=== PATIENT | male | born 1955 | race Caucasian/White ===

== ENCOUNTER 2017-11-29 21:17 | Inpatient (IN) | payer OTHER ==
[~2017-11-29] VITALS: Ht 188 cm; Wt 108.6 kg
[~2017-11-29 21:17] MED LIST: AMLODIPINE-BEN1 EAC4 PO; Ascorbic Acid,Ester- PO; Keflex PO; LIDODERM 5% P1 PATCH TD; LOTREL 5/201 CAPSUL1 PO; Lotensin PO; Lovenox SC; OxyCONTIN PO; SENOKOT S,PE1 TABLET PO; STOOL SOFTENER100 MG PO; Super B Complex PO; Vitamin D PO; Xanax PO; oxyCODONE PO
[2017-11-29 22:22] LABS: BASE EXCESS -0.7 mEq/L (-3 to +3); BICARBONATE 23.4 mEq/L (22-26); CARBOXY HGB 3.5 % (0-5); COMMENTS - BLOOD GASES C+A+; DEVICE NC; METHEMOGLOBIN 0.9 % (0-1.5); O2 FLOW 3 L/MIN; PCO2 36 mm Hg (35-45); PO2 78 mm Hg (80-100); SITE LR; pH 7.42 (7.35-7.45)
[2017-11-29 22:23] LABS: CHLORIDE 93 mEq/L (99-109); POTASSIUM 3.5 mEq/L (3.7-5.4); SODIUM 131 mEq/L (136-147)
[2017-11-29 22:28] LABS: GFR ESTIMATE (CALCULATED) 36 mL/min/ (58.99-99999)
[2017-11-29 22:29] LABS: UREA NITROGEN (BUN) 22 mg/dL (9-23)
[2017-11-29 22:31] LABS: CREATINE KINASE 191 IU/L (1-294)
[2017-11-29 22:35] LABS: TROP-I INTERPRETATION NEGATIVE; TROPONIN-I 0.03 ng/mL (0.0-0.30)
[2017-11-29 22:40] LABS: GLUCOSE 680 mg/dL (70-99)
[2017-11-29 22:41] LABS: BASOPHIL (%) 0.2 % (0-1); EOSINOPHIL (%) 0.1 % (0-5); IMMATURE GRANULOCYTE (%) 0.2 % (0.0-0.7); LYMPHOCYTE (%) 6.8 % (15-42); LYMPHOCYTE COUNT 0.6 K/uL (1.0-2.8); MONOCYTE (%) 5.9 % (3-12); MONOCYTE COUNT 0.5 K/uL (0-0.8); NEUTROPHIL (%) 86.8 % (45-76); NEUTROPHIL COUNT 7.5 K/uL (1.8-6.4); PLATELET COUNT 58 K/uL (156-360)
[2017-11-29 23:22] LABS: HEMATOCRIT 42.4 % (38.0-50.0); HEMOGLOBIN 16.1 G/DL (12.5-16.6); MCH 34.4 PG (29.0-34.0); MCV 90.6 FL (86-99); RBC DIS.WIDTH-CV 13.7 % (11.8-14.6); RBC DIS.WIDTH-SD 45.4 % (39-53); RED BLOOD COUNT 4.68 M/uL (4.00-5.50); WHITE BLOOD COUNT 8.7 K/uL (4.1-10.2)
[2017-11-30 03:10] LABS: APPEARANCE CLEAR ((CLEAR)); BILIRUBIN NEGATIVE; BLOOD NEGATIVE; COLOR YELLOW ((YELLOW)); GLUCOSE (STRIP) >=500; KETONES NEGATIVE; LEUKOCYTES NEGATIVE; NITRITE NEGATIVE; PROTEIN (STRIP) NEGATIVE; SPECIFIC GRAVITY 1.017 (1.000-1.030); UCUL ADDED? NO; UROBILINOGEN 0.2 MG/DL (0.2-1.0)
[2017-11-30 04:13] LABS: APPEARANCE CLEAR/COLORLESS; CSF TUBE NUMBER TUBE #4
[2017-11-30 04:16] LABS: RED CELL COUNT 2 /MM^3 (0-1); WHITE CELL COUNT 1 /MM^3 (0-5)
[2017-11-30 04:22] LABS: CSF PROTEIN 78 mg/dL (15-45)
[2017-11-30 04:28] LABS: CSF EOSINOPHILS 0 % (0-25); GLUCOSE, CSF 261 mg/dL (40-80); MONONUCLEAR WBC'S 80 % (50-90); POLYNUCLEAR WBC'S 20 % (0-3)
[2017-11-30 05:56] VITALS: BP 132/62
[2017-11-30 07:05] LABS: INTER. NORMALIZED RATIO 1.4
[2017-11-30 07:08] LABS: PTT 29.6 SEC (25-37)
[2017-11-30 07:26] LABS: ALBUMIN 3.1 G/DL (3.2-4.8); ALKALINE PHOSPHATASE 56 IU/L (3-129); ALT (GPT) 18 IU/L (3-49); AST (GOT) 25 IU/L (2-34)
[2017-11-30 07:45] LABS: DIRECT BILIRUBIN 1.7 mg/dL (0.0-0.3); TOTAL BILIRUBIN 4.7 MG/DL (0.0-1.0); TOTAL PROTEIN 5.7 G/DL (6.4-8.3)
[2017-11-30 08:04] LABS: CHLORIDE 98 MEQ/L (99-109); CREATININE 1.4 MG/DL (0.6-1.3); GFR ESTIMATE (CALCULATED) 54 mL/min/ (58.99-99999); GLUCOSE 399 mg/dL (70-99); POTASSIUM 3.6 MEQ/L (3.7-5.4); SODIUM 132 MEQ/L (136-147); UREA NITROGEN (BUN) 19 mg/dL (9-23)
[2017-11-30 08:31] VITALS: BP 113/57
[2017-11-30 12:00] VITALS: BP 120/58
[2017-11-30 13:17] LABS: HEMOGLOBIN A1c (GLYCOHEMOGLOB) 11.8 % (Below 5.7)
[2017-11-30 13:20] LABS: MAGNESIUM 1.4 mg/dl (1.3-2.7)
[2017-11-30] MEDS ORDERED: TRAMADOL HCL50 MG PO (13:27)
[2017-11-30] MEDS ORDERED: CLONAZEPAM0.5 MG PO (13:28)
[2017-11-30] MEDS ORDERED: LEVEMIR FL100 UNIT/1 SC (13:31)
[2017-11-30] MEDS ORDERED: LOSARTAN POTAS100 MG PO (13:36)
[2017-11-30] MEDS ORDERED: DULOXETINE HCL60 MG PO (13:36)
[2017-11-30] MEDS ORDERED: SPIRONOLACT/HC1 EACH PO (13:37)
[2017-11-30] MEDS ORDERED: NADOLOL20 MG PO (13:37)
[2017-11-30] MEDS ORDERED: GABAPENTIN100 MG PO (13:37)
[2017-11-30] MEDS ORDERED: AMLODIPINE BESYL5 MG PO (13:38)
[2017-11-30] MEDS ORDERED: PANTOPRAZOLE SO40 MG PO (13:38)
[2017-11-30 16:10] VITALS: BP 122/62
[2017-11-30 20:26] VITALS: BP 137/74
[2017-11-30 23:56] VITALS: BP 158/79
[2017-12-01 03:56] VITALS: BP 118/63
[2017-12-01 06:41] LABS: ALBUMIN 2.8 G/DL (3.2-4.8); ALKALINE PHOSPHATASE 42 IU/L (3-129); ALT (GPT) 19 IU/L (3-49); CHLORIDE 97 MEQ/L (99-109); GFR ESTIMATE (CALCULATED) > 59 mL/min/ (58.99-99999); GLUCOSE 287 mg/dL (70-99); POTASSIUM 3.2 MEQ/L (3.7-5.4); SODIUM 133 MEQ/L (136-147); TOTAL BILIRUBIN 4.8 MG/DL (0.0-1.0); TOTAL PROTEIN 5.3 G/DL (6.4-8.3); UREA NITROGEN (BUN) 17 mg/dL (9-23)
[2017-12-01 06:42] LABS: AST (GOT) 45 IU/L (2-34)
[2017-12-01 06:55] LABS: BASOPHIL (%) 0 % (0-1); EOSINOPHIL (%) 0.2 % (0-5); HEMATOCRIT 35.1 % (38.0-50.0); IMMATURE GRANULOCYTE (%) 0.4 % (0.0-0.7); LYMPHOCYTE (%) 17.8 % (15-42); LYMPHOCYTE COUNT 0.9 K/uL (1.0-2.8); MCH 34.3 PG (29.0-34.0); MCHC 36.8 G/DL (30.0-36.0); MCV 93.4 FL (86-99); MONOCYTE (%) 10.6 % (3-12); MONOCYTE COUNT 0.5 K/uL (0-0.8); NEUTROPHIL COUNT 3.6 K/uL (1.8-6.4); RBC DIS.WIDTH-CV 13.8 % (11.8-14.6); RBC DIS.WIDTH-SD 47.2 % (39-53); RED BLOOD COUNT 3.76 M/uL (4.00-5.50); WHITE BLOOD COUNT 5.1 K/uL (4.1-10.2)
[2017-12-01 07:00] LABS: HEMOGLOBIN 12.9 G/DL (12.5-16.6)
[2017-12-01 07:09] LABS: PLAT.SUFFICIENCY VERY DECREASED
[2017-12-01 07:10] LABS: PLATELET COUNT 32 K/uL (156-360)
[2017-12-01 07:57] VITALS: BP 120/66
[2017-12-01 11:46] VITALS: BP 143/73
[2017-12-01 15:15] VITALS: BP 128/61
[2017-12-01 19:37] VITALS: BP 130/61
[2017-12-01 23:35] VITALS: BP 146/82
[2017-12-02 03:30] VITALS: BP 136/61
[2017-12-02 05:51] LABS: BASOPHIL (%) 0.2 % (0-1); EOSINOPHIL (%) 2.1 % (0-5); EOSINOPHIL COUNT 0.1 K/uL (0-0.3); HEMATOCRIT 35.8 % (38.0-50.0); HEMOGLOBIN 12.9 G/DL (12.5-16.6); IMMATURE GRANULOCYTE (%) 0.2 % (0.0-0.7); LYMPHOCYTE (%) 22.7 % (15-42); LYMPHOCYTE COUNT 1.1 K/uL (1.0-2.8); MCH 33.9 PG (29.0-34.0); MONOCYTE (%) 10.5 % (3-12); MONOCYTE COUNT 0.5 K/uL (0-0.8); NEUTROPHIL (%) 64.3 % (45-76); NEUTROPHIL COUNT 3.1 K/uL (1.8-6.4); RBC DIS.WIDTH-CV 14.1 % (11.8-14.6); RBC DIS.WIDTH-SD 47.8 % (39-53); RED BLOOD COUNT 3.81 M/uL (4.00-5.50); WHITE BLOOD COUNT 4.8 K/uL (4.1-10.2)
[2017-12-02 06:22] LABS: PLAT.SUFFICIENCY VERY DECREASED; PLATELET COUNT 32 K/uL (156-360)
[2017-12-02 07:40] LABS: ALBUMIN 2.4 G/DL (3.2-4.8); ALKALINE PHOSPHATASE 40 IU/L (3-129); ALT (GPT) 16 IU/L (3-49); AST (GOT) 26 IU/L (2-34); CHLORIDE 103 MEQ/L (99-109); CREATININE 0.8 MG/DL (0.6-1.3); GFR ESTIMATE (CALCULATED) > 59 mL/min/ (58.99-99999); GLUCOSE 217 mg/dL (70-99); POTASSIUM 3.2 MEQ/L (3.7-5.4); SODIUM 138 MEQ/L (136-147); TOTAL BILIRUBIN 4.2 MG/DL (0.0-1.0); TOTAL PROTEIN 4.8 G/DL (6.4-8.3); UREA NITROGEN (BUN) 14 mg/dL (9-23)
[2017-12-02 08:24] VITALS: BP 143/64
[2017-12-02 12:16] VITALS: BP 136/76
[2017-12-02 15:58] VITALS: BP 134/77
[2017-12-02 19:39] VITALS: BP 131/76
[2017-12-02 23:22] VITALS: BP 148/73
[2017-12-03 03:24] VITALS: BP 147/80
[2017-12-03 05:18] LABS: BASOPHIL (%) 0.2 % (0-1); EOSINOPHIL (%) 3.5 % (0-5); EOSINOPHIL COUNT 0.2 K/uL (0-0.3); HEMATOCRIT 34.6 % (38.0-50.0); HEMOGLOBIN 12.7 G/DL (12.5-16.6); IMMATURE GRANULOCYTE (%) 0.4 % (0.0-0.7); LYMPHOCYTE (%) 28.1 % (15-42); LYMPHOCYTE COUNT 1.3 K/uL (1.0-2.8); MCH 34.5 PG (29.0-34.0); MCHC 36.7 G/DL (30.0-36.0); MONOCYTE (%) 9.1 % (3-12); MONOCYTE COUNT 0.4 K/uL (0-0.8); NEUTROPHIL (%) 58.7 % (45-76); NEUTROPHIL COUNT 2.7 K/uL (1.8-6.4); RBC DIS.WIDTH-CV 14.1 % (11.8-14.6); RBC DIS.WIDTH-SD 48.6 % (39-53); RED BLOOD COUNT 3.68 M/uL (4.00-5.50); WHITE BLOOD COUNT 4.5 K/uL (4.1-10.2)
[2017-12-03 05:51] LABS: ALBUMIN 2.5 G/DL (3.2-4.8); ALKALINE PHOSPHATASE 45 IU/L (3-129); ALT (GPT) 13 IU/L (3-49); AST (GOT) 24 IU/L (2-34); CHLORIDE 103 MEQ/L (99-109); CREATININE 0.7 MG/DL (0.6-1.3); GFR ESTIMATE (CALCULATED) > 59 mL/min/ (58.99-99999); GLUCOSE 185 mg/dL (70-99); POTASSIUM 2.9 MEQ/L (3.7-5.4); SODIUM 138 MEQ/L (136-147); TOTAL BILIRUBIN 3.8 MG/DL (0.0-1.0); TOTAL PROTEIN 4.9 G/DL (6.4-8.3); UREA NITROGEN (BUN) 14 mg/dL (9-23)
[2017-12-03 06:47] LABS: IMM.PLATELET FRACTION 3.4 (1-7); PLAT.SUFFICIENCY DECREASED; PLATELET COUNT 40 K/uL (156-360)
[2017-12-03 07:57] VITALS: BP 146/77
[2017-12-03 16:19] VITALS: BP 139/72
[2017-12-03 20:06] VITALS: BP 151/70
[2017-12-03 23:44] VITALS: BP 158/75
[2017-12-04 04:05] VITALS: BP 141/69
[2017-12-04 08:27] VITALS: BP 146/75
[2017-12-04 09:21] LABS: HEMATOCRIT 35.1 % (38.0-50.0); HEMOGLOBIN 12.8 G/DL (12.5-16.6); MCHC 36.5 G/DL (30.0-36.0); MCV 93.1 FL (86-99); RBC DIS.WIDTH-CV 14.1 % (11.8-14.6); RBC DIS.WIDTH-SD 48.3 % (39-53); RED BLOOD COUNT 3.77 M/uL (4.00-5.50); WHITE BLOOD COUNT 6.2 K/uL (4.1-10.2)
[2017-12-04 09:23] LABS: PLATELET COUNT 57 K/uL (156-360)
[2017-12-04 09:44] LABS: CHLORIDE 105 MEQ/L (99-109); CREATININE 0.6 MG/DL (0.6-1.3); GFR ESTIMATE (CALCULATED) > 59 mL/min/ (58.99-99999); GLUCOSE 203 mg/dL (70-99); POTASSIUM 3.1 MEQ/L (3.7-5.4); SODIUM 138 MEQ/L (136-147); UREA NITROGEN (BUN) 11 mg/dL (9-23)
[2017-12-04 10:39] LABS: MAGNESIUM 1.3 mg/dl (1.3-2.7)
[2017-12-04 15:46] VITALS: BP 159/78
[2017-12-04 19:39] VITALS: BP 139/75
[2017-12-04 23:29] VITALS: BP 165/81
[2017-12-05 03:25] VITALS: BP 184/83
[2017-12-05 05:52] LABS: BASOPHIL (%) 0.3 % (0-1); EOSINOPHIL (%) 2.6 % (0-5); EOSINOPHIL COUNT 0.2 K/uL (0-0.3); HEMOGLOBIN 12.5 G/DL (12.5-16.6); IMMATURE GRANULOCYTE (%) 0.9 % (0.0-0.7); LYMPHOCYTE (%) 21.6 % (15-42); LYMPHOCYTE COUNT 1.4 K/uL (1.0-2.8); MCH 34.7 PG (29.0-34.0); MCHC 36.8 G/DL (30.0-36.0); MCV 94.4 FL (86-99); MONOCYTE (%) 7.9 % (3-12); MONOCYTE COUNT 0.5 K/uL (0-0.8); NEUTROPHIL (%) 66.7 % (45-76); NEUTROPHIL COUNT 4.3 K/uL (1.8-6.4); PLATELET COUNT 59 K/uL (156-360); RBC DIS.WIDTH-SD 47.8 % (39-53); WHITE BLOOD COUNT 6.4 K/uL (4.1-10.2)
[2017-12-05 06:32] LABS: ALBUMIN 2.6 G/DL (3.2-4.8); ALKALINE PHOSPHATASE 51 IU/L (3-129); ALT (GPT) 13 IU/L (3-49); AST (GOT) 24 IU/L (2-34); CHLORIDE 104 MEQ/L (99-109); CREATININE 0.6 MG/DL (0.6-1.3); GFR ESTIMATE (CALCULATED) > 59 mL/min/ (58.99-99999); GLUCOSE 161 mg/dL (70-99); POTASSIUM 2.9 MEQ/L (3.7-5.4); SODIUM 136 MEQ/L (136-147); TOTAL BILIRUBIN 3.5 MG/DL (0.0-1.0); TOTAL PROTEIN 5.2 G/DL (6.4-8.3); UREA NITROGEN (BUN) 9 mg/dL (9-23)
[2017-12-05 06:33] LABS: MAGNESIUM 1.5 mg/dl (1.3-2.7)
[2017-12-05 08:32] VITALS: BP 176/79
[2017-12-05 11:31] VITALS: BP 179/80
[2017-12-05 16:22] VITALS: BP 188/87
[2017-12-05 19:37] VITALS: BP 171/78
[2017-12-05 23:07] VITALS: BP 189/88
[2017-12-06 04:02] VITALS: BP 170/79
[2017-12-06 05:36] LABS: BASOPHIL (%) 0.4 % (0-1); EOSINOPHIL (%) 2.1 % (0-5); EOSINOPHIL COUNT 0.1 K/uL (0-0.3); HEMATOCRIT 31.7 % (38.0-50.0); HEMOGLOBIN 11.5 G/DL (12.5-16.6); IMMATURE GRANULOCYTE (%) 1.4 % (0.0-0.7); LYMPHOCYTE (%) 21.2 % (15-42); LYMPHOCYTE COUNT 1.1 K/uL (1.0-2.8); MCHC 36.3 G/DL (30.0-36.0); MCV 93.8 FL (86-99); MONOCYTE (%) 8.3 % (3-12); MONOCYTE COUNT 0.4 K/uL (0-0.8); NEUTROPHIL (%) 66.6 % (45-76); NEUTROPHIL COUNT 3.4 K/uL (1.8-6.4); PLATELET COUNT 67 K/uL (156-360); RBC DIS.WIDTH-CV 14.3 % (11.8-14.6); RBC DIS.WIDTH-SD 47.6 % (39-53); RED BLOOD COUNT 3.38 M/uL (4.00-5.50); WHITE BLOOD COUNT 5.2 K/uL (4.1-10.2)
[2017-12-06 06:06] LABS: ALBUMIN 2.5 G/DL (3.2-4.8); ALKALINE PHOSPHATASE 45 IU/L (3-129); ALT (GPT) 12 IU/L (3-49); AST (GOT) 22 IU/L (2-34); CHLORIDE 105 MEQ/L (99-109); CREATININE 0.6 MG/DL (0.6-1.3); GFR ESTIMATE (CALCULATED) > 59 mL/min/ (58.99-99999); GLUCOSE 179 mg/dL (70-99); MAGNESIUM 1.6 mg/dl (1.3-2.7); SODIUM 137 MEQ/L (136-147); TOTAL BILIRUBIN 3.4 MG/DL (0.0-1.0); TOTAL PROTEIN 5.2 G/DL (6.4-8.3); UREA NITROGEN (BUN) 9 mg/dL (9-23)
[2017-12-06 07:24] VITALS: BP 137/73
[2017-12-06] MEDS ORDERED: DOCUSATE SODIU100 MG PO (09:36)
[2017-12-06] MEDS ORDERED: SENNA PLUS TAB1 EACH PO (09:36)
[2017-12-06] MEDS ORDERED: K-DUR20 MEQ PO (09:36)
[2017-12-06] MEDS ORDERED: NOVOLOG 10100 UNITS/ SC (09:37)
[2017-12-06] MEDS ORDERED: Salonpas 4% Patch TD (09:37)
[2017-12-06] MEDS ORDERED: TRAMADOL HCL50 MG PO (09:37)
[2017-12-06] MEDS ORDERED: LEVEMIR100 UNIT/2 SC (09:37)
[2017-12-06] MEDS ORDERED: MAG-OXIDE400 MG PO (09:41)
[2017-12-06 11:00] VITALS: BP 130/65
[2017-12-06 16:47] VITALS: BP 172/74
== END 2017-12-06 19:54 | DRG 872 ==
LOC: EME 21:17 → EDOF 11-30 03:52 → 3EAST 11-30 03:52 → ENRESERV 11-30 03:55 → 3EAST 11-30 05:34
PROVIDERS: Emergency Medicine; Hospitalist
PROC: 009U3ZZ Drainage of Spinal Canal, Percutaneous Approach (ICD-10-PCS; principal; 2017-11-30)
DX: A41.02 Sepsis due to Methicillin resistant Staphylococcus aureus (principal); J10.1 Influenza due to other identified influenza virus with other respiratory manifestations; R65.20 Severe sepsis without septic shock; N17.9 Acute kidney failure, unspecified; S22.39XA Fracture of one rib, unspecified side, initial encounter for closed fracture; M71.20 Synovial cyst of popliteal space [Baker], unspecified knee; E87.6 Hypokalemia; J90 Pleural effusion, not elsewhere classified; I10 Essential (primary) hypertension; E11.65 Type 2 diabetes mellitus with hyperglycemia; E86.0 Dehydration; R00.0 Tachycardia, unspecified; F10.21 Alcohol dependence, in remission; K76.6 Portal hypertension; B18.2 Chronic viral hepatitis C; S20.212A Contusion of left front wall of thorax, initial encounter; K74.60 Unspecified cirrhosis of liver; W18.30XA Fall on same level, unspecified, initial encounter; D69.59 Other secondary thrombocytopenia; R26.81 Unsteadiness on feet; M19.90 Unspecified osteoarthritis, unspecified site; Z96.651 Presence of right artificial knee joint; R61 Generalized hyperhidrosis; R07.89 Other chest pain; I35.8 Other nonrheumatic aortic valve disorders; R01.1 Cardiac murmur, unspecified; Z87.891 Personal history of nicotine dependence; Z87.442 Personal history of urinary calculi
CPT/HCPCS: 36600; 70450; 70553; 71045; 71110; 71250; 78315; 80048; 80053; 80076; 81003; 82550; 82803; 82945; 82948; 83036; 83605; 83735; 84132 91; 84157; 84484; 85025; 85027; 85610; 85730; 87040; 87070; 87077; 87186; 87205; 87502; 87801; 89051; 93005; 93306; 93312; 93970; 97530 GP; 99202; 99281; 99285; A9503; J0692; J0696; J1815; J2405; J3010; J3370; J3475; J3480; J7030; J7050; S0032

== ENCOUNTER 2018-01-08 14:58 | Emergency (ER) | payer OTHER ==
[~2018-01-08] VITALS: Ht 185.4 cm; Wt 96.3 kg
[~2018-01-08 14:58] MED LIST changes: +AMLODIPINE BESYL5 MG PO; +CLONAZEPAM0.5 MG PO; +DOCUSATE SODIU100 MG PO; +DULOXETINE HCL60 MG PO; +GABAPENTIN100 MG PO; +K-DUR20 MEQ PO; +LEVEMIR FL100 UNIT/1 SC; +LEVEMIR100 UNIT/2 SC; +LOSARTAN POTAS100 MG PO; +MAG-OXIDE400 MG PO; +NADOLOL20 MG PO; +NOVOLOG 10100 UNITS/ SC; +PANTOPRAZOLE SO40 MG PO; +SENNA PLUS TAB1 EACH PO; +SPIRONOLACT/HC1 EACH PO; +Salonpas 4% Patch TD; +TRAMADOL HCL50 MG PO
[2018-01-08 16:05] LABS: HEMATOCRIT 40.4 % (38.0-50.0); HEMOGLOBIN 14.2 G/DL (12.5-16.6); MCH 34.8 PG (29.0-34.0); MCHC 35.1 G/DL (30.0-36.0); PLATELET COUNT 122 K/uL (156-360); RBC DIS.WIDTH-CV 14.7 % (11.8-14.6); RED BLOOD COUNT 4.08 M/uL (4.00-5.50); WHITE BLOOD COUNT 7.7 K/uL (4.1-10.2)
[2018-01-08 16:16] LABS: CHLORIDE 103 mEq/L (99-109)
[2018-01-08 16:17] LABS: POTASSIUM 4.5 mEq/L (3.7-5.4); SODIUM 136 mEq/L (136-147)
[2018-01-08 16:18] LABS: GLUCOSE 120 mg/dL (70-99)
[2018-01-08 16:22] LABS: CREATININE 0.8 mg/dL (0.6-1.3); GFR ESTIMATE (CALCULATED) > 59 mL/min/ (58.99-99999)
[2018-01-08 16:23] LABS: UREA NITROGEN (BUN) 4 mg/dL (9-23)
[2018-01-08 16:31] LABS: TROP-I INTERPRETATION NEGATIVE; TROPONIN-I < 0.01 ng/mL (0.0-0.30)
[2018-01-08 18:27] VITALS: BP 130/70
== END 2018-01-08 18:15 | disposition home or self-care (01) ==
LOC: EME 14:58
PROVIDERS: Emergency Medicine
DX: R55 Syncope and collapse (principal); G93.0 Cerebral cysts; D69.6 Thrombocytopenia, unspecified; R73.9 Hyperglycemia, unspecified; M54.5 Low back pain; T50.995A Adverse effect of other drugs, medicaments and biological substances, initial encounter; W18.39XA Other fall on same level, initial encounter; I10 Essential (primary) hypertension; F41.9 Anxiety disorder, unspecified; Z87.442 Personal history of urinary calculi; Z87.891 Personal history of nicotine dependence; Z96.651 Presence of right artificial knee joint
CPT/HCPCS: 70450; 71046; 72100; 72220; 80048; 84484; 85027; 93005; 99281; 99284